=== PATIENT | female | born 1950 | race Caucasian/White ===

== ENCOUNTER 2017-04-06 10:16 | Emergency (ER) | payer MEDICARE, OTHER ==
[2017-04-06 12:12] VITALS: BP 173/80
--- NOTE | 2017-04-06 12:22 | UC ---
Eye Complaint HPI - HPI Summary HPI Summary: 67 female presents to with complaints of right eye redness, irritation, itching and drainage that began 3 days ago. Patient states she thought it would just go away however it has just been worsening. Admits to crusting in the morning and purulent drainage. Denies vision changes and symptoms in left eye. No other complaints. Has not tried any medications. Did have multiple children over her house for the holidays. Does not wear contacts, glasses only. Denies getting anything into eye and no FB sensation. No photophobia. - History of Current Complaint Chief Complaint: UCEye Stated Complaint: RIGHT EYE COMPLAINT Time Seen by Provider: 04/06/17 12:12 Hx Obtained From: Patient Onset/Duration: Sudden Onset, Lasting Days, Still Present, Worse Since Timing: Constant Severity Initially: Mild Severity Currently: Moderate Pain Intensity: 3 Pain Scale Used: 0-10 Numeric Location of Injury: Conjunctiva - r, Eye Lid (lower) Aggravating Factor(s): Nothing Alleviating Factor(s): Nothing Associated Signs And Symptoms: Positive: Drainage (Purulent) - Allergies/Home Medications Allergies/Adverse Reactions: Allergies Allergy/AdvReac Type Severity Reaction Status Date / Time Nabumetone [From Relafen] Allergy Mild Rash Verified 04/06/17 12:04 Nitrofurantoin Allergy Mild Rash Verified 04/06/17 12:04 [From Macrodantin] Home Medications: Home Medications Carvedilol TAB* [Coreg TAB*] 12.5 mg BID 04/06/17 [History Confirmed 04/06/17] Eszopiclone (NF) [Lunesta (NF)] 1 tab DAILY 04/06/17 [History Confirmed 04/06/17 ] Losartan TAB* [Cozaar TAB*] 1 tab DAILY 04/06/17 [History Confirmed 04/06/17] Omeprazole CAP* [Prilosec CAP* 20 MG] 1 cap DAILY 04/06/17 [History Confirmed ] PMH/Surg Hx/FS Hx/Imm Hx - Surgical History Surgical History: Yes Surgery Procedure, Year, and Place: Gastric band. Gallbladder. Tonsils as kid. Carpal tunnel - Family History Known Family History: Positive: None - Social History Alcohol Use: None Substance Use Type: None Smoking Status (MU): Never Smoked Tobacco - Immunization History Most Recent Influenza Vaccination: 2017 Vaccination Up to Date: Yes Review of Systems Constitutional: Negative Eyes: Drainage - purulent with crusting, Eye Redness - right ENT: Negative Respiratory: Negative Cardiovascular: Negative Neurovascular: Negative Musculoskeletal: Negative Neurological: Negative All Other Systems Reviewed And Are Negative: Yes Physical Exam Triage Information Reviewed: Yes Appearance: Well-Appearing, No Pain Distress, Well-Nourished Vital Signs: Initial Vital Signs Temp 98.2 F 04/06/17 12:06 Pulse 59 04/06/17 12:06 Resp 16 04/06/17 12:06 BP 173/80 04/06/17 12:06 Pulse Ox 99 04/06/17 12:06 elevated BP however patient diagnosed with HTN and takes medication, encouraged recheck within 1-2 weeks Vital Signs Reviewed: Yes Eyes: Positive: Conjunctiva Inflamed - erythema right eye, Discharge - purulent with crusting and tearing right eye, Other: - no surrounding cellulitis ENT: Positive: Normal ENT inspection, Hearing grossly normal, Pharynx normal Neck: Positive: Supple, Nontender, No Lymphadenopathy Respiratory: Positive: Chest non-tender, Lungs clear, Normal breath sounds, No respiratory distress Cardiovascular: Positive: RRR, No Murmur, Pulses Normal, Brisk Capillary Refill Musculoskeletal: Positive: Strength Intact Neurological Exam: Normal Skin Exam: Normal Eye Complaint Course/Dx - Course Course Of Treatment: appears to be suffering from conjunctivitis of right eye. worsening over 3 days. will treat with polytrim. normal eye exam otherwise. no other concerns. aware of worsening signs and symtoms. increase fluid intake. do not touch. apply warm compresses and wash all towels/blankets. follow up pcp. recheck bp within 1-2 weeks - Differential Dx/Diagnosis Differential Diagnosis/HQI/PQRI: Conjunctivitis, Keratitis, Uveitis Provider Diagnoses: right eye bacterial conjunctivitis Discharge - Discharge Plan Condition: Good Disposition: HOME Prescriptions: Polymyx/Trimethoprim OPTH* [Polytrim OPHTH*] 1 drop BOTH EYES Q3H #1 btl Patient Education Materials: Conjunctivitis (ED) Referrals: Rebecca Dorado MD [Primary Care Provider] - Additional Instructions: Apply eye drops as directed. Apply warm compresses. Try to refrain from touching eyes. Wash all pillows, blankets and towels as this is very contagious. Wash hands frequently. Ibuprofen for discomfort/inflammation. Follow up with PCP. Any new or worsening symptoms please seek medical attention promptly.
== END 2017-04-06 12:46 | disposition home or self-care (01) ==
LOC: UCCORT 10:16
DX: H10.31 Unspecified acute conjunctivitis, right eye (principal); Z90.49 Acquired absence of other specified parts of digestive tract; Z98.84 Bariatric surgery status; Z88.1 Allergy status to other antibiotic agents
CPT/HCPCS: 99212; G0463

== ENCOUNTER 2018-11-06 09:11 | Emergency (ER) | payer MEDICARE, OTHER ==
[2018-11-06 09:37] VITALS: BP 124/58
--- NOTE | 2018-11-06 09:52 | UC ---
Complaint Female HPI - HPI Summary HPI Summary: 68-year-old female presents with onset of dysuria, frequency, and urgency last night. States she is having 2 episodes of urinary incontinence. Reports some mild suprapubic discomfort. Denies fever, chills, back or flank pain, nausea, vomiting, hematuria, vaginal discharge, or abnormal vaginal bleeding. - History Of Current Complaint Chief Complaint: UCGU Stated Complaint: URINARY COMPLAINT Time Seen by Provider: 11/06/18 09:32 Hx Obtained From: Patient Pain Intensity: 4 - Allergies/Home Medications Allergies/Adverse Reactions: Allergies Allergy/AdvReac Type Severity Reaction Status Date / Time nabumetone Allergy Rash Verified 11/06/18 09:41 nitrofurantoin Allergy Rash Verified 11/06/18 09:41 Home Medications: Home Medications Metformin HCl 500 mg PO DAILY 11/06/18 [History Confirmed 11/06/18] PMH/Surg Hx/FS Hx/Imm Hx Endocrine History: Diabetes Cardiovascular History: Hypertension GI/ History: Gastroesophageal Reflux - Surgical History Surgical History: Yes Surgery Procedure, Year, and Place: Gastric band. Gallbladder. Tonsils as kid. Carpal tunnel - Family History Known Family History: Positive: Non-Contributory - Social History Occupation: Retired Lives: With Family Alcohol Use: None Substance Use Type: None Smoking Status (MU): Former Smoker Length of Time of Smoking/Using Tobacco: on/off for 35 yrs Have You Smoked in the Last Year: No When Did the Patient Quit Smoking/Using Tobacco: 1989 - Immunization History Most Recent Influenza Vaccination: 2017 Vaccination Up to Date: Yes Review of Systems All Other Systems Reviewed And Are Negative: Yes Constitutional: Negative: Fever, Chills Respiratory: Positive: Negative Cardiovascular: Positive: Negative Gastrointestinal: Positive: Abdominal Pain. Negative: Vomiting, Nausea Genitourinary: Positive: Dysuria, Frequency, Urgency. Negative: Hematuria, Vaginal/Penile Discharge, Abnormal Bleeding Musculoskeletal: Positive: Negative Neurological: Positive: Negative Is Patient Immunocompromised?: No Physical Exam - Summary Physical Exam Summary: GENERAL APPEARANCE: Well developed, well nourished, alert and cooperative, and appears to be in no acute distress. CARDIAC: Normal S1 and S2. No S3, S4 or murmurs. Rhythm is regular. There is no peripheral edema, cyanosis or pallor. Extremities are warm and well perfused. Capillary refill is less than 2 seconds. Peripheral pulses intact. LUNGS: Clear to auscultation without rales, rhonchi, wheezing or diminished breath sounds. ABDOMEN: Positive bowel sounds. Soft, nondistended. Mild suprapubic tenderness without guarding or rebound. No masses or hepatosplenomegally. No CVA tenderness. MUSKULOSKELETAL: ROM intact to all extremities. No joint erythema or tenderness. Normal muscular development. Normal gait. SKIN: Skin normal color, texture and turgor with no lesions or eruptions. Triage Information Reviewed: Yes Vital Signs: Initial Vital Signs Temp 97.5 F 11/06/18 09:27 Pulse 72 11/06/18 09:27 Resp 16 11/06/18 09:27 BP 124/58 11/06/18 09:27 Pulse Ox 98 11/06/18 09:27 Vital Signs Reviewed: Yes Complaint Female Dx - Course Course Of Treatment: 68-year-old female presents with onset of dysuria, frequency, and urgency last night. States she is having 2 episodes of urinary incontinence. Reports some mild suprapubic discomfort. Denies fever, chills, back or flank pain, nausea, vomiting, hematuria, vaginal discharge, or abnormal vaginal bleeding. Afebrile. Vital signs stable. Patient has some mild suprapubic tenderness otherwise exam was unremarkable. [id number] urinalysis showed 3+ leukocyte esterase, trace ketones, and 1+ protein. Will treat empirically for a urinary tract infection with cephalexin 500 mg twice a day 5 days as well as Pyridium 100 mg 3 times a day for the first 2 days to help discomfort. She is to follow- up with primary care provider in 3 days if symptoms are not improving. Anticipatory times warning symptoms reviewed with the patient. Verbalizes understanding and agrees with plan of care. - Differential Dx/Diagnosis Differential Diagnosis/HQI/PQRI: Renal Colic, Urinary Tract Infection Provider Diagnosis: UTI (urinary tract infection) Discharge - Sign-Out/Discharge Documenting (check all that apply): Patient Departure All imaging exams completed and their final reports reviewed: No Studies - Discharge Plan Condition: Stable Disposition: HOME Prescriptions: Cephalexin CAP* [Keflex 500 CAP*] 500 mg PO BID #10 cap Phenazopyridine TAB* [Pyridium 100 mg TAB*] 100 mg PO TID #6 tab Patient Education Materials: Urinary Tract Infection in Women (ED) Referrals: Rebecca Dorado MD [Primary Care Provider] - 3 Days Additional Instructions: Your urine test in the clinic today is suggestive of a urinary tract infection. We will start you on an antibiotic to treat for the infection. We will also send a urine culture today to see what bacteria grow out and make sure the antibiotic you were prescribed is appropriate to treat the infection. It will take 48-72 hours to get these results. We will contact you if there is any change in your treatment plan. Start cephalexin (Keflex) 1 capsule twice a day for 5 days. Take Pyridium 1 tablet every 8 hours for next 2 days to help with the discomfort. This medication will turn your urine an orange color. Follow up with your primary care provider in 3-5 days if symptoms persist. Seek immediate medical attention in the emergency room if you develop fever greater than 100.5 F, have severe abdominal pain, persistent vomiting, or any worsening of symptoms. - Billing Disposition and Condition Condition: STABLE Disposition: Home - Attestation Statements Provider Attestation: I was available for consult. This patient was seen by the MICHELLE. The patient was not presented to , seen by or examined by ne -Ginger Verdugo MD
== END 2018-11-06 10:14 | disposition home or self-care (01) ==
LOC: UCCORT 09:11
DX: N39.0 Urinary tract infection, site not specified (principal); E11.9 Type 2 diabetes mellitus without complications; Z79.84 Long term (current) use of oral hypoglycemic drugs; I10 Essential (primary) hypertension; Z87.891 Personal history of nicotine dependence
CPT/HCPCS: 81003; 87086; 99212; G0463